=== PATIENT | female | born 1960 | race African-American/Black ===

== ENCOUNTER → 2017-05-15 | Day surgery (SDC) | payer BC ==
[~2017-05-15] MED LIST: ESOM40CA PO; IV RINGERS,LACTATED 1000ML 1,000 ML IV SCH; LIDOCAINE 1% PF 2 ML VIAL. ID PRN; LIDOCAINE 2% PF Vial for OR 5 ML VIAL. ONE; MIDAZOLAM HCL/PF 2 MG/2 ML VIAL. IV PRN; NAPR220T70 PO; PROPOFOL 40 ML IV ONE; TRIA1CAP3 PO; fentaNYL PF VIAL 100 MCG/2 ML VIAL IV PRN
[2017-05-15 10:32] VITALS: BP 145/61
== END | disposition home or self-care (01) ==
LOC: SURG 09:00
PROVIDERS: ATTEND Internal Medicine Gastroenterology
DX: Z12.11 Encounter for screening for malignant neoplasm of colon (principal); K64.0 First degree hemorrhoids; I10 Essential (primary) hypertension; Z80.0 Family history of malignant neoplasm of digestive organs; Z88.0 Allergy status to penicillin
CPT/HCPCS: 45378; J2704; J2001